=== PATIENT | female | born 1975 | race Caucasian/White ===

== ENCOUNTER 2021-07-08 07:31 | Outpatient (CLI) | payer OTHER | END 2021-07-08 07:32 | disposition home or self-care (01) | LOC: CSHULT 07:31 | PROVIDERS: ATTEND Family Medicine Sports Medicine | DX: R79.89 Other specified abnormal findings of blood chemistry (principal); K76.0 Fatty (change of) liver, not elsewhere classified | CPT/HCPCS: 76700 ==